=== PATIENT | male | born 1965 | race Caucasian/White ===

== ENCOUNTER → 2020-08-29 10:31 | Outpatient (BNVA) | payer OTHER, SELFPAY | PROVIDERS: PCP Internal Medicine; Referring Provider Internal Medicine; Visit Provider Physician Assistant | DX: K63.5 Polyp of colon (principal); K57.30 Diverticulosis of large intestine without perforation or abscess without bleeding; Z98.890 Other specified postprocedural states | CPT/HCPCS: 99213 ==

== ENCOUNTER 2020-09-07 10:02 | Outpatient (REF) | payer OTHER, SELFPAY | END 2020-09-07 10:03 | disposition home or self-care (01) | LOC: HO.LAB 10:02 | PROVIDERS: PCP Internal Medicine; Visit Provider Internal Medicine | DX: Z20.828 Contact with and (suspected) exposure to other viral communicable diseases (principal) | CPT/HCPCS: 87635 ==

== ENCOUNTER 2020-10-03 09:20 | Outpatient (REF) | payer OTHER, SELFPAY ==
--- NOTE | 2020-10-03 09:27 | XR_ITS ---
EXAMINATION: XR SHOULDER, RIGHT CLINICAL INFORMATION: Pain in right shoulder COMPARISON: None TECHNIQUE: AP external rotation, Grashey, scapular Y, and axillary views of the right shoulder. FINDINGS: There is no fracture or dislocation. The glenohumeral joint is well aligned. The joint space is maintained with small osteophytes. Mild hypertrophic degenerative change of the acromioclavicular joint. The appearance of the acromioclavicular joint may be postoperative. The visualized lung is clear. The visualized ribs are intact. XR/XR shoulder RT min 2V IMPRESSION: No acute abnormality. Mild degenerative changes.
== END 2020-10-03 09:21 | disposition home or self-care (01) ==
LOC: HO.XRAY 09:20
PROVIDERS: PCP Internal Medicine; Visit Provider Internal Medicine
DX: M25.511 Pain in right shoulder (principal)
CPT/HCPCS: 73030

== ENCOUNTER → 2020-10-09 20:25 | Outpatient (REF) | payer OTHER, SELFPAY | LOC: HO.SL 20:25 | PROVIDERS: PCP Internal Medicine; Visit Provider Internal Medicine Cardiovascular Disease | DX: G47.33 Obstructive sleep apnea (adult) (pediatric) (principal) | CPT/HCPCS: 95811 ==

== ENCOUNTER 2020-11-29 13:48 | Outpatient (REF) | payer MEDICAID, SELFPAY | END 2020-11-29 13:49 | disposition home or self-care (01) | LOC: HO.LAB 13:48 | PROVIDERS: PCP Internal Medicine; Visit Provider Internal Medicine | DX: Z20.822 Contact with and (suspected) exposure to COVID-19 (principal) | CPT/HCPCS: 36415; C9803; U0003 ==

== ENCOUNTER 2020-12-09 10:15 | Outpatient (REF) | payer MEDICAID, SELFPAY | END 2020-12-09 10:16 | disposition home or self-care (01) | LOC: HO.LAB 10:15 | PROVIDERS: PCP Internal Medicine; Visit Provider Internal Medicine | DX: Z20.822 Contact with and (suspected) exposure to COVID-19 (principal) | CPT/HCPCS: 36415; C9803; U0003 ==

== ENCOUNTER 2021-06-05 09:25 | Emergency (ER) | payer MEDICAID, SELFPAY ==
[2021-06-05 09:41] VITALS: BP 138/82; PULSE 74; RESP 16; TEMP 36.8; O2SAT 95; BMI 38.9
--- NOTE | 2021-06-05 09:47 | ED_ITS ---
HPI - Chest Pain General Chief Complaint: Chest Pain Stated Complaint: Chest Pain Time Seen by Provider: 06/05/21 09:46 Source: patient Mode of arrival: ambulatory Limitations: no limitations History of Present Illness HPI narrative: patient states he had high blood pressure and some chest pain. In February he had a stent placed MD complaint: chest pain Pertinent past history: coronary artery disease Onset (ago): day(s) Timing of current episode: episodic Prior episodes: Yes Pain location: substernal Pain radiation: none Severity: mild Quality: heaviness Risk Factors Coronary artery disease risk factors: diabetes, hyperlipidemia and hypertension Related Data Home Medications Medication Instructions Recorded Confirmed atorvastatin 40 mg tablet 40 mg PO DAILY 08/29/20 08/29/20 aspirin 1 tab PO QAM 06/05/21 06/05/21 clopidogrel 1 tab PO QAM 06/05/21 06/05/21 ergocalciferol (vitamin D2) 1 cap PO QWEEK 06/05/21 06/05/21 hydrochlorothiazide 1 tab PO QAM 06/05/21 06/05/21 lisinopril 1 tab PO QPM 06/05/21 06/05/21 metformin 1 tab PO BID 06/05/21 06/05/21 Allergies Allergy/AdvReac Type Severity Reaction Status Date / Time No Known Allergies Allergy Verified 08/29/20 09:38 Review of Systems Constitutional: Constitutional: Reports no additional constitutional complaints Eyes: Eyes: Reports no additional eye complaints ENT: Denies dizziness Cardiovascular: Cardiovascular: Reports no additional cardiovascular complaints Respiratory: Respiratory: Reports as per HPI Gastrointestinal: Gastrointestinal: Reports no additional gastrointestinal complaints Musculoskeletal: Musculoskeletal: Reports no additional musculoskeletal complaints Integumentary/Breasts: Skin/Breast: Denies rash Neurologic: Reports system reviewed and no additional complaints, except as documented, Denies dizziness and Denies Sensory deficit (Neuro) Psychiatric: Psychiatric: Denies anxiety [facility] Past Medical History Medical History Diverticulosis large intestine w/o perforation or abscess w/o bleeding Dyslipidemia Family History Family History Father Prostate cancer Social History Social History Alcohol intake: current Alcohol intake frequency: a few times a week Patient Tobacco Use Status: Current everyday Tobacco user Use of substances other than those prescribed or required for medical reasons: No Advance Directives: No Advance Directives Information Provided: No Physical Exam Vital Signs: Vital Signs: Last Vital Signs Temp 98.2 F 06/05/21 09:41 Pulse 75 06/05/21 09:54 Resp 20 06/05/21 09:54 BP 137/80 06/05/21 09:54 Pulse Ox 98 06/05/21 09:54 Body Mass Index 38.9 Const: General: healthy appearing Nutritional Appearance: overweight Orientation/consciousness: oriented to person and patient oriented x3 Limitations: no limitations HENMT: Head: Yes normal to inspection Ears: external ears normal General nose exam: Normal external nose present Mouth: Normal oral and palatal mucosa present and oropharynx normal Throat: Yes posterior oropharynx normal Eyes: General: appearance normal, both eyes and all related structures Neck: Other: supple Neck: Yes normal visual inspection Chest: Chest palpation & inspection: normal inspection of the chest Resp: Auscultation: clear to auscultation bilaterally Cardio: Jugular venous distension: no JVD Rate: regular rate Rhythm: regular rhythm Heart sounds: S1 normal heart sound present and S2 normal heart sound present GI: Inspection: Yes normal to inspection Palpation (GI): Soft to palpation, nontender and No hepatosplenomegaly present Auscultation: normal bowel sounds : General: Yes no CVA tenderness Back/Spine/Pelvis: Back: no CVA tenderness Skin: General skin exam: no rashes or lesions noted Neuro: General: oriented to person and patient oriented x3 Cranial nerves: Yes CN's II-XII intact bilaterally Motor exam (neuro): 5/5 motor strength present throughout Sensory Exam: No Sensory deficit (Neuro) Extrem: General: Yes normal to inspection Psych: Appearance: grossly normal Course Reevaluation(s) Reevaluation #1: patient with a normal EKG, normal troponin resting comfortably with no symptoms. Will dc home with follow up Time: 10:44 MDM - Chest Pain Lab Data Result diagrams: 06/05/21 09:58 06/05/21 09:58 Labs: Lab Results 06/05/21 06/05/21 06/05/21 Range/Units 09:58 09:58 09:58 WBC 9.5 (4.8-10.8) X10*3/uL RBC 4.73 (4.60-5.80) X10*6/uL Hgb 14.1 (14.0-18.0) g/dl Hct 42.8 (42-52) % MCV 90.5 (80-98) fL MCH 29.8 (27.0-33.0) pg MCHC 32.9 (31.0-36.0) g/dl RDW 13.9 (11.0-16.0) % Plt Count 286 (160-400) X10*3/uL MPV 8.7 L (9.4-12.4) fL Immature Gran % (Auto) 0.5 H (0.0-0.4) % Neut % (Auto) 63.1 (45-73) % Lymph % (Auto) 27.9 (20-40) % [place] % (Auto) 4.5 (2-11) % Eos % (Auto) 3.5 (0-4) % Baso % (Auto) 0.5 (0-2) % Lymph # (Auto) 2.7 (1.2-4.9) X10*3/uL [place] # (Auto) 0.4 (0.1-1.2) X10*3/uL Eos # (Auto) 0.3 (0.0-0.4) X10*3/uL Baso # (Auto) 0.1 (0.0-0.2) X10*3/uL Abs Immat Gran (auto) 0.05 H (0.00-0.03) X10*3/uL Absolute Neuts (auto) 6.0 (2.0-8.3) X10*3/uL Absolute Nucleated RBC 0.000 (0.0-0.012) X10*3/uL Nucleated RBC % (auto) 0.0 (0.0-0.2) /100WBC Sodium 141 (135-145) mmol/L Potassium 3.9 (3.3-5.1) mmol/L Chloride 106 (96-108) mmol/L Carbon Dioxide 27 (22-29) mmol/L Anion Gap 12 (12-20) BUN 11 (9-16) mg/dL Creatinine 0.97 (0.5-1.4) mg/dL Estim Creat Clear Calc 120.5 Estimated GFR > 60 Random Glucose 119 H (60-115) mg/dL Calcium 9.4 (8.4-10.2) mg/dL Troponin I High Sens 9.3 (<3.5-35.0) ng/L Discharge Plan Discharge Clinical Impression: Chest pain Qualifiers: Chest pain type: unspecified Qualified Code(s): R07.9 - Chest pain, unspecified Patient Disposition: Home, Self-Care Instructions: Chest Pain (ED) Prescriptions: No Action metformin 500 mg tablet 1 tab PO BID RF: 0 clopidogrel 75 mg tablet 1 tab PO QAM RF: 0 aspirin 81 mg tablet,delayed release (DR/EC) 1 tab PO QAM RF: 0 lisinopril 5 mg tablet 1 tab PO QPM RF: 0 ergocalciferol (vitamin D2) 1,250 mcg (50,000 unit) capsule 1 cap PO QWEEK RF: 0 hydrochlorothiazide 12.5 mg tablet 1 tab PO QAM RF: 0 atorvastatin 40 mg tablet 40 mg PO DAILY RF: 0 Referrals: Nichole Simpson MD [Primary Care Provider] - 3 days
--- NOTE | 2021-06-05 09:50 | ECG_ITS ---
Test Reason : CP Blood Pressure : / mmHG Vent. Rate : 070 BPM Atrial Rate : 070 BPM P-R Int : 144 ms QRS Dur : 092 ms QT Int : 416 ms P-R-T Axes : 059 038 039 degrees QTc Int : 449 ms Normal sinus rhythm Normal ECG No previous ECGs available Referred By: Richie Griffiths Electronically Signed By:LUPE SUH MD
[2021-06-05 09:54] VITALS: BP 137/80; PULSE 75; RESP 20; O2SAT 98
[2021-06-05 10:08] LABS: MANUAL DIFF FLAG NO
[2021-06-05 10:10] LABS: Basophils Absolute Auto 0.1 X10*3/uL (0.0-0.2); Basophils Percent Auto 0.5 % (0-2); Eosinophils Absolute Auto 0.3 X10*3/uL (0.0-0.4); Eosinophils Percent Auto 3.5 % (0-4); Hematocrit 42.8 % (42-52); Hemoglobin 14.1 g/dl (14.0-18.0); Imm Gran Abs Auto 0.05 X10*3/uL (0.00-0.03); Imm Gran Pct Auto 0.5 % (0.0-0.4); Lymphocytes Absolute Auto 2.7 X10*3/uL (1.2-4.9); Lymphocytes Percent Auto 27.9 % (20-40); Mean Corpuscular HGB Conc 32.9 g/dl (31.0-36.0); Mean Corpuscular Hemoglobin 29.8 pg (27.0-33.0); Mean Corpuscular Volume 90.5 fL (80-98); Mean Platelet Volume 8.7 fL (9.4-12.4); Monocytes Absolute Auto 0.4 X10*3/uL (0.1-1.2); Monocytes Percent Auto 4.5 % (2-11); Neutrophils Percent Auto 63.1 % (45-73); Platelet Count 286 X10*3/uL (160-400); Red Blood Count 4.73 X10*6/uL (4.60-5.80); Red Cell Distribution Width 13.9 % (11.0-16.0); White Blood Count 9.5 X10*3/uL (4.8-10.8)
[2021-06-05 10:33] LABS: Troponin-I High Sensitivity 9.3 ng/L (<3.5-35.0)
[2021-06-05 10:34] LABS: Anion Gap 12 (12-20); Blood Urea Nitrogen 11 mg/dL (9-16); Calcium 9.4 mg/dL (8.4-10.2); Carbon Dioxide 27 mmol/L (22-29); Chloride 106 mmol/L (96-108); Creatinine Clr Calc Pharmacy 120.5; Estimated Glomerular Filt Rate > 60; Glucose Random 119 mg/dL (60-115); Potassium 3.9 mmol/L (3.3-5.1); Sodium 141 mmol/L (135-145)
== END 2021-06-05 11:19 | disposition home or self-care (01) ==
PROVIDERS: Emergency Provider Emergency Medicine; PCP Internal Medicine
DX: R07.9 Chest pain, unspecified (principal); I25.10 Atherosclerotic heart disease of native coronary artery without angina pectoris; I10 Essential (primary) hypertension; E11.9 Type 2 diabetes mellitus without complications; Z79.82 Long term (current) use of aspirin; Z79.84 Long term (current) use of oral hypoglycemic drugs; Z79.899 Other long term (current) drug therapy
CPT/HCPCS: 36415; 80048; 84484; 85025; 93005; 99284

== ENCOUNTER 2021-07-03 12:15 | Outpatient (REF) | payer MEDICAID, SELFPAY ==
[2021-07-03 13:11] LABS: Blood Urea Nitrogen 12 mg/dL (9-16); Estimated Glomerular Filt Rate > 60
== END 2021-07-03 12:16 | disposition home or self-care (01) ==
LOC: HO.LAB 12:15
PROVIDERS: PCP Internal Medicine; Visit Provider Psychiatry & Neurology Neurology
DX: G45.4 Transient global amnesia (principal); R42 Dizziness and giddiness; G45.0 Vertebro-basilar artery syndrome
CPT/HCPCS: 36415; 82565; 84520

== ENCOUNTER 2021-07-10 14:02 | Outpatient (REF) | payer MEDICAID, SELFPAY ==
--- NOTE | ~2021-07-10 | MR_ITS ---
EXAMINATION: MR BRAIN WITHOUT CONTRAST MR ANGIOGRAM HEAD WITHOUT CONTRAST CLINICAL INFORMATION: Transient global amnesia. Dizziness and giddiness. COMPARISON: No relevant prior imaging. TECHNIQUE: Multiplanar MR imaging of the brain was performed without contrast. A 3-dimensional [id number] angiogram of the head was also obtained. MIP reconstructions were generated in multiple orientations at the acquisition workstation. Multiple three-dimensional surface rendered images and maximum intensity projection images were generated on a dedicated 3-D lab workstation. Arterial stenoses are measured in accordance with NASCET criteria or similar method if applicable. FINDINGS: Brain: There is no acute territorial infarct. No pathological magnetic susceptibility artifact. Intracranial vascular flow voids are maintained. There is no intracranial mass effect or midline shift. No abnormal extra-axial collection. Lateral and third ventricles are normal. No hydrocephalus. Midline structures including the cervicomedullary junction are normal. No acute bone marrow signal changes. There is no mastoid or middle ear effusion. Mild to moderate paranasal sinus disease primarily affecting the ethmoid air cells. Globes and orbits are symmetric. MR angiogram: Intracranial internal carotid arteries are normal. The intradural vertebral artery segments and basilar artery are normal. There is moderate to high-grade narrowing involving the M1 segment of the left middle cerebral artery. There is also moderate to high-grade narrowing involving the A3 segment of the right anterior cerebral artery. MR/MR head/brain wo con IMPRESSION: The MR angiogram reveals moderate to high-grade narrowing involving the M1 segment of the left middle cerebral artery and the A3 segment of the right anterior cerebral artery. Otherwise unremarkable examination in that there is no evidence of acute territorial infarct or hemorrhage.
--- NOTE | ~2021-07-10 | MR_ITS ---
EXAMINATION: MR BRAIN WITHOUT CONTRAST MR ANGIOGRAM HEAD WITHOUT CONTRAST CLINICAL INFORMATION: Transient global amnesia. Dizziness and giddiness. COMPARISON: No relevant prior imaging. TECHNIQUE: Multiplanar MR imaging of the brain was performed without contrast. A 3-dimensional ikye-dw-kxtjec angiogram of the head was also obtained. MIP reconstructions were generated in multiple orientations at the acquisition workstation. Multiple three-dimensional surface rendered images and maximum intensity projection images were generated on a dedicated 3-D lab workstation. Arterial stenoses are measured in accordance with NASCET criteria or similar method if applicable. FINDINGS: Brain: There is no acute territorial infarct. No pathological magnetic susceptibility artifact. Intracranial vascular flow voids are maintained. There is no intracranial mass effect or midline shift. No abnormal extra-axial collection. Lateral and third ventricles are normal. No hydrocephalus. Midline structures including the cervicomedullary junction are normal. No acute bone marrow signal changes. There is no mastoid or middle ear effusion. Mild to moderate paranasal sinus disease primarily affecting the ethmoid air cells. Globes and orbits are symmetric. MR angiogram: Intracranial internal carotid arteries are normal. The intradural vertebral artery segments and basilar artery are normal. There is moderate to high-grade narrowing involving the M1 segment of the left middle cerebral artery. There is also moderate to high-grade narrowing involving the A3 segment of the right anterior cerebral artery. MR/MR angio head wo con IMPRESSION: The MR angiogram reveals moderate to high-grade narrowing involving the M1 segment of the left middle cerebral artery and the A3 segment of the right anterior cerebral artery. Otherwise unremarkable examination in that there is no evidence of acute territorial infarct or hemorrhage.
== END 2021-07-10 14:03 | disposition home or self-care (01) ==
LOC: HO.MRI 14:02
PROVIDERS: PCP Internal Medicine; Visit Provider Psychiatry & Neurology Neurology
DX: G45.4 Transient global amnesia (principal); R42 Dizziness and giddiness; G45.0 Vertebro-basilar artery syndrome
CPT/HCPCS: 70544; 70551

== ENCOUNTER 2021-11-06 09:36 | Outpatient (REF) | payer MEDICAID, SELFPAY ==
[2021-11-06 11:27] LABS: COVID-19 Test Negative (Negative)
== END 2021-11-06 09:37 | disposition home or self-care (01) ==
LOC: HO.LAB 09:36
PROVIDERS: PCP Internal Medicine; Visit Provider Internal Medicine
DX: Z20.822 Contact with and (suspected) exposure to COVID-19 (principal)
CPT/HCPCS: 36415; 87635; C9803

== ENCOUNTER 2022-05-16 07:34 | Emergency (ER) | payer MEDICAID, SELFPAY ==
--- NOTE | ~2022-05-16 | XR_ITS ---
EXAMINATION: XR CHEST CLINICAL INFORMATION: Chest pain. COMPARISON: None TECHNIQUE: Frontal view of the chest was obtained. FINDINGS: No significant abnormality is noted involving the heart, lungs, mediastinum, bony thorax or soft tissues. XR/XR chest 1V IMPRESSION: No acute cardiopulmonary process.
[2022-05-16 07:58] VITALS: BP 158/88; PULSE 90; RESP 18; TEMP 36.3; O2SAT 99; BMI 40.7
--- NOTE | 2022-05-16 09:39 | ED_ITS ---
HPI - General Adult General Chief complaint: General Medical Stated complaint: high bp Time Seen by Provider: 05/16/22 09:20 Source: patient Mode of arrival: ambulatory Limitations: no limitations History of Present Illness HPI narrative: 57 yo male hx of HTN, DM, prior coronary thrombosis denies stent states he was put on plavix and aspirin, hasn't filled any of his medications since 10/2021 due to they make my stomach burn He also reports that he has depression and vague SI and wants to talk to someone. He comes today because he was hot at work yesterday and felt weak. He will now take his BP medications if we tell him he has to but no other medications. He sees a therapist every other week. MD complaint: off meds for 3 months, HTN, depressed SI Onset (ago): month(s) Severity: mild Quality: dull Pain Consistency: now resolved Relieving factors: none Exacerbating factors: other (has not taken any medications since october 2021) Associated symptoms: other (felt hot and weak while at work yesterday they don't have AC, BP was 170s now wants to only take his BP meds he is depressed and has thoughts of SI frequently no plan) Treatments prior to arrival: none Related Data Home Medications Medication Instructions Recorded Confirmed atorvastatin 40 mg tablet 40 mg PO DAILY 08/29/20 08/29/20 aspirin 81 mg tablet,delayed 1 tab PO QAM 06/05/21 06/05/21 release clopidogrel 75 mg tablet 1 tab PO QAM 06/05/21 06/05/21 ergocalciferol (vitamin D2) 1,250 1 cap PO QWEEK 06/05/21 06/05/21 mcg (50,000 unit) capsule hydrochlorothiazide 12.5 mg tablet 1 tab PO QAM 06/05/21 06/05/21 lisinopril 5 mg tablet 1 tab PO QPM 06/05/21 06/05/21 metformin 500 mg tablet 1 tab PO BID 06/05/21 06/05/21 Previous Rx's Medication Instructions Recorded lisinopril 5 mg tablet 5 mg PO DAILY #30 tabs 05/16/22 Allergies Allergy/AdvReac Type Severity Reaction Status Date / Time No Known Allergies Allergy Verified 08/29/20 09:38 Review of Systems Review of Systems: Constitutional : No Weight loss, No Fever, No Chills, No Fatigue, No Malaise ENT/Mouth : No sore throat, No Rhinorrhea Eyes: No Eye Pain, No Swelling, No Redness Cardiovascular : No Chest Pain, No SOB, No Dyspnea on Exertion, No Orthopnea, No Edema, No Palpitations Respiratory : No Cough, No Sputum, No Wheezing Gastrointestinal : No Nausea, No Vomiting, No Diarrhea, No Constipation, No abdominal Pain, No Hematochezia, No Melena Genitourinary : No Dysuria, No Urinary Frequency, No Hematuria, Musculoskeletal : No joint pain, No Myalgias, No Joint Swelling Skin : No Skin Lesions, No rash Neuro : pos Weakness, No Numbness, No Dizziness, No Headache Psych : No Anxiety/Panic, pos Depression, pos SI Heme/Lymph: No Bruising, No Bleeding,No Lymphadenopathy Endocrine : No Polyuria, No Polydipsia All other systems reviewed and are negative [facility] Past Medical History Attestation statement: The following information was validated with the patient. Medical History Coronary artery thrombosis Diverticulosis large intestine w/o perforation or abscess w/o bleeding Dyslipidemia Family History Family History Father Prostate cancer Social History Social History Alcohol intake: current Alcohol intake frequency: a few times a week Patient Tobacco Use Status: Current everyday Tobacco user Physical Exam ED Vital Signs: Vital Signs - 24 hr 05/16/22 07:58 Temperature 97.4 F Pulse Rate 90 Respiratory Rate 18 Blood Pressure 158/88 H Pulse Oximetry 99 Oxygen Delivery Method Room Air BMI result Body Mass Index 40.7 Appearance: Alert. Oriented X3. No acute distress. Eyes: Pupils equal, round and reactive to light. ENT: Pharynx normal. Neck: Normal inspection. Neck supple. CVS: Normal heart rate and rhythm. Pulses normal. Respiratory: No respiratory distress. Breath sounds normal. Abdomen: Soft and non-tender. Skin: Skin warm and dry. Normal skin color. Normal skin turgor. Extremities: No lower extremity edema. No calf ttp Neuro: Oriented X 3. No motor deficit. No sensory deficit. CN2-12 intact Course Course Course Narrative: no concern for SI cleared by psychiatry [employer]IST labs stable, patient is eloping from the ED now he is angry we offered him to talk to someone about his depression Medical Decision Making MDM Narrative Medical decision making narrative: 57 yo male hx of HTN, DM, prior coronary thrombosis comes in with c/o elevated BPs at home and felt hot and weak yesterday - states he will consider starting his medicatons again just for BP not his metformin/asa/plavix/statin because they upset his stomach. He also c/o depression and vague SI and wants to talk to someone as he does think about ending his life. Will obtain labs, EKG and consult CARE team. Lab Data Result diagrams: 05/16/22 10:17 05/16/22 10:17 Labs: Lab Results 05/16/22 05/16/22 05/16/22 Range/Units 10:17 10:17 10:17 WBC 7.4 (4.8-10.8) X10*3/uL RBC 4.97 (4.60-5.80) X10*6/uL Hgb 14.6 (14.0-18.0) g/dl Hct 44.6 (42.0-52.0) % MCV 89.7 (80.0-98.0) fL MCH 29.4 (27.0-33.0) pg MCHC 32.7 (31.0-36.0) g/dl RDW 13.7 (11.0-16.0) % Plt Count 275 (160-400) X10*3/uL MPV 9.3 L (9.4-12.4) fL Immature Gran % (Auto) 0.7 H (0.0-0.4) % Neut % (Auto) 59.2 (45-73) % Lymph % (Auto) 31.1 (20-40) % [place] % (Auto) 5.8 (2-11) % Eos % (Auto) 2.7 (0-4) % Baso % (Auto) 0.5 (0-2) % Lymph # (Auto) 2.3 (1.2-4.9) X10*3/uL [place] # (Auto) 0.4 (0.1-1.2) X10*3/uL Eos # (Auto) 0.2 (0.0-0.4) X10*3/uL Baso # (Auto) 0.0 (0.0-0.2) X10*3/uL Abs Immat Gran (auto) 0.05 H (0.00-0.03) X10*3/uL Absolute Neuts (auto) 4.4 (2.0-8.3) x10*3/uL Absolute Nucleated RBC 0.000 (0.0-0.012) X10*3/uL Nucleated RBC % (auto) 0.0 (0.0-0.2) /100WBC PT 10.0 (10.0-13.1) SEC INR 0.9 (0.9-1.1) Sodium 141 (135-145) mmol/L Potassium 4.7 D (3.3-5.1) mmol/L Chloride 108 (96-108) mmol/L Carbon Dioxide 28 (22-29) mmol/L Anion Gap 10 L (12-20) BUN 14 (9-16) mg/dL Creatinine 1.12 (0.5-1.4) mg/dL Estim Creat Clear Calc 105.7 Estimated GFR > 60 Random Glucose 199 H D (60-115) mg/dL Calcium 9.3 (8.4-10.2) mg/dL Total Bilirubin 0.3 (0.0-1.0) mg/dL Direct Bilirubin < 0.2 (0.0-0.5) mg/dL AST 31 (5-37) U/L ALT 35 (0-40) U/L Alkaline Phosphatase 95 (39-117) U/L Troponin I High Sens (<3.5-35.0) ng/L Total Protein 7.5 (6.5-8.0) g/dL Albumin 3.9 (3.5-5.0) g/dL 05/16/22 Range/Units 10:17 WBC (4.8-10.8) X10*3/uL RBC (4.60-5.80) X10*6/uL Hgb (14.0-18.0) g/dl Hct (42.0-52.0) % MCV (80.0-98.0) fL MCH (27.0-33.0) pg MCHC (31.0-36.0) g/dl RDW (11.0-16.0) % Plt Count (160-400) X10*3/uL MPV (9.4-12.4) fL Immature Gran % (Auto) (0.0-0.4) % Neut % (Auto) (45-73) % Lymph % (Auto) (20-40) % [place] % (Auto) (2-11) % Eos % (Auto) (0-4) % Baso % (Auto) (0-2) % Lymph # (Auto) (1.2-4.9) X10*3/uL [place] # (Auto) (0.1-1.2) X10*3/uL Eos # (Auto) (0.0-0.4) X10*3/uL Baso # (Auto) (0.0-0.2) X10*3/uL Abs Immat Gran (auto) (0.00-0.03) X10*3/uL Absolute Neuts (auto) (2.0-8.3) x10*3/uL Absolute Nucleated RBC (0.0-0.012) X10*3/uL Nucleated RBC % (auto) (0.0-0.2) /100WBC PT (10.0-13.1) SEC INR (0.9-1.1) Sodium (135-145) mmol/L Potassium (3.3-5.1) mmol/L Chloride (96-108) mmol/L Carbon Dioxide (22-29) mmol/L Anion Gap (12-20) BUN (9-16) mg/dL Creatinine (0.5-1.4) mg/dL Estim Creat Clear Calc Estimated GFR Random Glucose (60-115) mg/dL Calcium (8.4-10.2) mg/dL Total Bilirubin (0.0-1.0) mg/dL Direct Bilirubin (0.0-0.5) mg/dL AST (5-37) U/L ALT (0-40) U/L Alkaline Phosphatase (39-117) U/L Troponin I High Sens 4.4 (<3.5-35.0) ng/L Total Protein (6.5-8.0) g/dL Albumin (3.5-5.0) g/dL ECG Data Attestation: I personally reviewed and interpreted this ECG as follows: Interpretation: Rate: 81 Rhythm: NSR [place]: normal Normal P waves. Normal JERRI. Normal QRS complex. ST T wave : normal no BRYCE qTC: normal prior studies: no acute ischemia The study has been interpreted contemporaneously by me. . Discharge Plan Discharge Clinical Impression: HTN (hypertension) Qualifiers: Hypertension type: unspecified Qualified Code(s): I10 - Essential (primary) hypertension Depression Qualifiers: Depression Type: unspecified Qualified Code(s): F32.A - Depression, unspecified Patient Disposition: Elopement Instructions: Depression (ED), Hypertension (ED) Additional Instructions: return to ED for any worsening symptoms or concerns Prescriptions: New lisinopril 5 mg tablet 5 mg PO DAILY Qty: 30 0RF No Action metformin 500 mg tablet 1 tab PO BID clopidogrel 75 mg tablet 1 tab PO QAM aspirin 81 mg tablet,delayed release (DR/EC) 1 tab PO QAM lisinopril 5 mg tablet 1 tab PO QPM ergocalciferol (vitamin D2) 1,250 mcg (50,000 unit) capsule 1 cap PO QWEEK hydrochlorothiazide 12.5 mg tablet 1 tab PO QAM atorvastatin 40 mg tablet 40 mg PO DAILY Referrals: Nichole Simpson MD [Primary Care Provider] - 1 day Interventions: ED Discharge Assessment Last Done: 05/16/22 10:57 Discharge Date/Time: 05/16/22 10:58
--- NOTE | 2022-05-16 09:47 | ECG_ITS ---
Test Reason : hbp Blood Pressure : / mmHG Vent. Rate : 081 BPM Atrial Rate : 081 BPM P-R Int : 154 ms QRS Dur : 088 ms QT Int : 410 ms P-R-T Axes : 054 028 023 degrees QTc Int : 476 ms Normal sinus rhythm Normal ECG When compared with ECG of 05-JUN-2021 09:57, No significant change was found Referred By: Isabell Church Electronically Signed By:KATHY CARMICHAEL
[2022-05-16 10:27] LABS: MANUAL DIFF FLAG NO
[2022-05-16 10:29] LABS: Basophils Percent Auto 0.5 % (0-2); Eosinophils Absolute Auto 0.2 X10*3/uL (0.0-0.4); Eosinophils Percent Auto 2.7 % (0-4); Hematocrit 44.6 % (42.0-52.0); Hemoglobin 14.6 g/dl (14.0-18.0); Imm Gran Abs Auto 0.05 X10*3/uL (0.00-0.03); Imm Gran Pct Auto 0.7 % (0.0-0.4); Lymphocytes Absolute Auto 2.3 X10*3/uL (1.2-4.9); Lymphocytes Percent Auto 31.1 % (20-40); Mean Corpuscular HGB Conc 32.7 g/dl (31.0-36.0); Mean Corpuscular Hemoglobin 29.4 pg (27.0-33.0); Mean Corpuscular Volume 89.7 fL (80.0-98.0); Mean Platelet Volume 9.3 fL (9.4-12.4); Monocytes Absolute Auto 0.4 X10*3/uL (0.1-1.2); Monocytes Percent Auto 5.8 % (2-11); Neutrophils Absolute Auto 4.4 x10*3/uL (2.0-8.3); Neutrophils Percent Auto 59.2 % (45-73); Platelet Count 275 X10*3/uL (160-400); Red Blood Count 4.97 X10*6/uL (4.60-5.80); Red Cell Distribution Width 13.7 % (11.0-16.0); White Blood Count 7.4 X10*3/uL (4.8-10.8)
[2022-05-16 10:34] LABS: INTERNATIONAL NORM RATIO 0.9 (0.9-1.1)
--- NOTE | 2022-05-16 10:37 | P.CNPS_ITS ---
History of Present Illness Date of Service: 05/16/2022 Chief Complaint: high bp Reason for Consult: SI Requesting physician: Isabell Church Discussed with referring provider: Yes Sources of Information: patient interviewed, chart reviewed and crisis/core team assessment reviewed HPI Narrative: Mr. Gabriel is a 57 year-old male, self presented as to [facility] ED reporting feeling dizzy, found to be hypertensive, not taking medications at home. While being assessed medically, pt reported feeling down and made gesture with hand as to wanting to harm self. Psychiatric consult place for safety assessment. Pt reports he has hx of depression, shelter therapy at [facility]. He shows confirmation of appointment with his therapist tomorrow. Pt reports that he was upset with ED provider as he felt as ED scolding me as child for not taking blood pressure medications. He reports that when he made hand gesture, he was referring to not wanting to answer more of her questions as he felt he was being misunderstood. Pt adamantly denies suicidal ideation, plan or intent. He reports he plans to continue taking HTN medications. He identifies his spiritual belives as protective factors and denies hx of suicide attempts. No hx of VH/AH. 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 Memory/cog: alert, oriented x 3. Medical Evaluation Reviewed: Yes [facility] Medical History Coronary artery thrombosis Diverticulosis large intestine w/o perforation or abscess w/o bleeding Dyslipidemia Diagnostics Vital Signs (24Hr): Vital Signs - 24 hr 05/16/22 07:58 Temperature 97.4 F Pulse Rate 90 Respiratory Rate 18 Blood Pressure 158/88 H Pulse Oximetry 99 Oxygen Delivery Method Room Air BMI result Body Mass Index 40.7 Labs Results: 05/16/22 10:17 05/16/22 10:17 Labs: Laboratory Results - last 48 hr 05/16/22 05/16/22 10:17 10:17 WBC 7.4 RBC 4.97 Hgb 14.6 Hct 44.6 MCV 89.7 MCH 29.4 MCHC 32.7 RDW 13.7 Plt Count 275 MPV 9.3 L Immature Gran % (Auto) 0.7 H Neut % (Auto) 59.2 Lymph % (Auto) 31.1 [place] % (Auto) 5.8 Eos % (Auto) 2.7 Baso % (Auto) 0.5 Lymph # (Auto) 2.3 [place] # (Auto) 0.4 Eos # (Auto) 0.2 Baso # (Auto) 0.0 Abs Immat Gran (auto) 0.05 H Absolute Neuts (auto) 4.4 Absolute Nucleated RBC 0.000 Nucleated RBC % (auto) 0.0 PT 10.0 INR 0.9 Medications Allergies Allergies Allergy/AdvReac Type Severity Reaction Status Date / Time No Known Allergies Allergy Verified 08/29/20 09:38 Assessment & Plan Assessment & Plan (1) Major depressive disorder, recurrent, moderate: Status: Acute Code(s): F33.1 - Major depressive disorder, recurrent, moderate Plan Mr. Harvey hughes presented to [facility] ED reporting feeling dizzy, found to be hypertensive, not taking prescribed HTN medication despite cardiovascular risks, made vague SI statement to ED attending while being medically cleared. Pt reports he did not mean to say that he was suicidal, that he felt misunderstood, and made hand gesture, as to harm self but states this was in referrence of not wanting to answer further questions asked by ED attending as he felt misunde rstood. - Pt does have follow up appointment with N scheduled for tomorrow- pt showed this leader writer text message confirmation from [facility] system. - adamantly denies suicidal and homicidal ideation. - self presented to ED worried about health, despite non compliance, presents as future oriented. PLAN 1. No indication of imminent safety concern in terms of suicidal or homicidal ideation. 2. Pt to follow up outpatient with computer terminal operator providers through [facility]. I spent _25 minutes with the patient and/or on the patient floor today, greater than?50% of which was spent counseling/coordinating care.
[2022-05-16 10:50] LABS: Alanine Aminotransferase 35 U/L (0-40); Albumin Level 3.9 g/dL (3.5-5.0); Alkaline Phosphatase 95 U/L (39-117); Anion Gap 10 (12-20); Aspartate Amino Transferase 31 U/L (5-37); Bilirubin Direct < 0.2 mg/dL (0.0-0.5); Bilirubin Total 0.3 mg/dL (0.0-1.0); Blood Urea Nitrogen 14 mg/dL (9-16); Calcium 9.3 mg/dL (8.4-10.2); Carbon Dioxide 28 mmol/L (22-29); Chloride 108 mmol/L (96-108); Creatinine Clr Calc Pharmacy 105.7; Estimated Glomerular Filt Rate > 60; Glucose Random 199 mg/dL (60-115); Potassium 4.7 mmol/L (3.3-5.1); Sodium 141 mmol/L (135-145); Total Protein 7.5 g/dL (6.5-8.0)
[2022-05-16 10:56] LABS: Troponin-I High Sensitivity 4.4 ng/L (<3.5-35.0)
[2022-05-16 11:01] LABS: COVID-19 Test Negative (Negative); IDNOW Serial# 9DB6401D
== END 2022-05-16 10:58 | disposition left against medical advice (07) ==
PROVIDERS: Emergency Provider Emergency Medicine; PCP Internal Medicine
DX: I10 Essential (primary) hypertension (principal); F32.A Depression, unspecified; R45.851 Suicidal ideations; E11.9 Type 2 diabetes mellitus without complications; Z91.14 Patient's other noncompliance with medication regimen
CPT/HCPCS: 71045; 80048; 80076; 84484; 85025; 85610; 87635; 93005; 99284